=== PATIENT | female | born 1955 | race Caucasian/White ===

== ENCOUNTER 2022-03-07 09:39 | Outpatient (RCR) | payer MEDICARE | END 2022-03-15 | LOC: PT 09:39 | PROVIDERS: ATTEND Specialist | DX: M17.0 Bilateral primary osteoarthritis of knee (principal) ==

== ENCOUNTER 2022-04-06 11:00 | Outpatient (RCR) | payer MEDICARE | END 2022-04-15 | LOC: PT 11:00 | PROVIDERS: ATTEND Specialist | DX: M17.0 Bilateral primary osteoarthritis of knee (principal) | CPT/HCPCS: 97139 ==